=== PATIENT | male | born 1975 | race Caucasian/White ===

== ENCOUNTER 2023-08-02 20:30 | Outpatient (CLI) | payer SELFPAY | END 2023-08-02 20:31 | disposition home or self-care (01) | LOC: AMB 08-05 10:42 | PROVIDERS: Visit Provider Emergency Medicine Emergency Medical Services | DX: T26.41XA Burn of right eye and adnexa, part unspecified, initial encounter (principal); T26.42XA Burn of left eye and adnexa, part unspecified, initial encounter; X17.XXXA Contact with hot engines, machinery and tools, initial encounter; Y92.009 Unspecified place in unspecified non-institutional (private) residence as the place of occurrence of the external cause | CPT/HCPCS: A0425; A0427 ==